=== PATIENT | female | born 1950 | race Caucasian/White ===

== ENCOUNTER 2018-09-30 16:19 | Emergency (ER) | payer MEDICARE, BC | END 2018-09-30 18:17 | disposition home or self-care (01) | LOC: FTE 18:17 | DX: S10.11XA Abrasion of throat, initial encounter (principal); E11.9 Type 2 diabetes mellitus without complications; X58.XXXA Exposure to other specified factors, initial encounter; Y92.9 Unspecified place or not applicable; Z79.84 Long term (current) use of oral hypoglycemic drugs | CPT/HCPCS: 70490; 71250; 99284-25 ==